=== PATIENT | female | born 1960 | race Caucasian/White ===

== ENCOUNTER → 2021-02-23 | Outpatient (CLI) | payer OTHER ==
[~2021-02-23] MED LIST: ATORVASTATIN CA40 MG PO; BRILINTA 90 MG90 MG PO; ECOTRIN81 MG PO; ENTRESTO 24 MG1 EACH PO; GLUCOPHAGE XR500 MG PO; IMDUR ER TAB 3030 MG PO; K-DUR TAB 10 M10 MEQ PO; LASIX20 MG PO; NICOTINE PATCH1 EAC1 TD; TOPROL XL25 MG PO; TYLENOL 500 MG500 MG PO; ZANTAC150 MG PO; ZOCOR20 MG PO
== END ==
LOC: KOH-I 02-18 10:00
DX: F17.210 Nicotine dependence, cigarettes, uncomplicated (principal); R91.8 Other nonspecific abnormal finding of lung field
CPT/HCPCS: 71271